=== PATIENT | female | born 1960 | race Caucasian/White ===

== ENCOUNTER → 2020-03-08 10:57 | Outpatient (CLI) | payer OTHER, SELFPAY ==
--- NOTE | ~2020-03-08 | DEXA_ITS ---
Bone Density Report Name: Suzanne New Age: 59 Sex: Female Ethnicity: White Date of : 1960 Indication: osteopenia; parental hip fracture; height loss; prior fracture; Referring Provider: ARMANDO BOLAND Study: Bone densitometry was performed. Exam Date: March 08, 2020 Accession number: [id number] Bone Density: Region BMD T-score Z-score Classification AP Spine (L1-L4) 0.829 -2.0 -0.5 Osteopenia Femoral Neck (Left) 0.641 -1.9 -0.6 Osteopenia Total Hip (Left) 0.819 -1.0 0.0 Normal Femoral Neck (Right) 0.668 -1.6 -0.3 Osteopenia Total Hip (Right) 0.756 -1.5 -0.5 Osteopenia Total Hip Mean 0.788 -1.3 -0.3 Osteopenia World Health Organization criteria for BMD impression classify patients as: Normal (T-score at or above -1.0), Osteopenia (T-score between -1.0 and -2.5), or Osteoporosis (T-score at or below -2.5). 10-year Fracture Risk: FRAX not reported because: Prior hip or vertebral fracture Previous Exams: Region Exam Age BMD T-score BMD Change BMD Change Date g/cm2 vs Baseline vs Previous AP Spine(L1-L4) 03/08/2020 59 0.829 -2.0 -0.012 -0.012 03/22/2011 50 0.842 -1.9 Total Hip(Left) 03/08/2020 59 0.819 -1.0 0.005 0.005 03/22/2011 50 0.814 -1.1 Total Hip(Right) 03/08/2020 59 0.756 -1.5 -0.028* -0.028* 03/22/2011 50 0.784 -1.3 *Denotes significance at 95% confidence level, LSC for AP Spine = 0.022 g/cm2, LSC for Total Hip = 0.027 g/cm2 Clinical Information Provided by Patient: Have had a previous hip or vertebral fracture Has had a low trauma fracture Parent has had a hip fracture Patient maximum height was 65.0 Menopause Age: 46 No regular weight bearing exercise Does not regularly consume dairy products Drinks caffeinated beverages Onset of menses at age 12 Number of children 2 Impression: The patient has low bone mass, based on the Total Spine T-score. The patient has risk factors, including: parental hip fracture, previous fracture. The BMD for the Total Hip(Right) decreased, changing by -0.028 since the last DXA exam. Discussion: INCREASED RISK OF FRACTURE DUE TO HISTORY OF FRACTURE. The patient's previous fracture puts the patient at high risk of a future fracture. In untreated patients, the risk of osteoporotic fracture increases approximately two-fold for each 1.0 SD decrease in T-score. Low bone density is not the only risk factor for fractur
--- NOTE | ~2020-03-08 | MM_ITS ---
EXAMINATION: MM screening [facility] BI w carrie HISTORY: Screening TECHNIQUE: Craniocaudal and mediolateral oblique 3-D tomosynthesis images were obtained and synthetic 2-D images were generated. CAD analysis was submitted and interpreted. COMPARISON: Comparison to multiple prior studies sequentially, with oldest reviewed study dated 02/04. BREAST PARENCHYMAL COMPOSITION: There are scattered areas of fibroglandular density. FINDINGS: There are benign bilateral breast calcifications which are not significantly changed. There is no evidence of suspicious mass, calcification, or architectural distortion to suggest malignancy in either breast. There has been no suspicious interval change. IMPRESSION: 1. No mammographic evidence of malignancy. 2. Recommend routine screening mammography in one year. BI-RADS Category 2: Benign finding(s). Reviewed, dictated and finalized at location A. ETCHER
== END ==
PROVIDERS: PCP Family Medicine Adolescent Medicine; Visit Provider Family Medicine Adolescent Medicine
DX: Z12.31 Encounter for screening mammogram for malignant neoplasm of breast (principal); Z78.0 Asymptomatic menopausal state; M85.88 Other specified disorders of bone density and structure, other site; M85.852 Other specified disorders of bone density and structure, left thigh; M85.851 Other specified disorders of bone density and structure, right thigh
CPT/HCPCS: 77063; 77067; 77080

== ENCOUNTER 2021-06-26 10:32 | Outpatient (CLI) | payer OTHER, SELFPAY ==
[2021-06-26 11:10] LABS: Hematocrit 42.2 % (37.0-47.0); Hemoglobin 13.6 g/dL (12.0-15.0)
== END 2021-06-26 10:33 | disposition home or self-care (01) ==
LOC: ANHSURGERY 10:36
PROVIDERS: PCP Family Medicine Adolescent Medicine; Visit Provider Obstetrics & Gynecology
DX: N95.0 Postmenopausal bleeding (principal); Z01.818 Encounter for other preprocedural examination
CPT/HCPCS: 36415; 85014; 85018

== ENCOUNTER 2021-06-30 02:07 | Day surgery (SDC) | payer OTHER, SELFPAY ==
[2021-06-22 11:41] VITALS: BMI 35.4
--- NOTE | 2021-06-22 11:52 | PC.NURSE ---
Report to the Outpatient Waiting Room, entrance under the green pavilion located off [facility], at time 10:45 on date 06/30/21. OR Time: 12:45. - You and your visitor will be asked a series of questions to screen for COVID 19 for your protection. - A mask is required within the hospital. One visitor will be allowed to accompany the patient into the hospital. Patients visitor will be instructed to remain with patient at all times or leave the building. We will allow the visitor to come back to the postoperative area when patient is ready. Preoperative COVID Testing Requirements: No COVID Test needed if: (proof is required; if not received patient will have Rapid Test prior to entry) - Patient has received COVID Vaccine at least 14 days prior to procedure date or - Patient has positive COVID test result within last 90 days of surgery date. COVID Test needed if above criteria is not met Patients may have clear liquids (water, carbonated beverages, clear teas, apple juice) until 3 hours prior to surgery (9:45) with a maximum of 20 ounces. - No food from midnight until time of surgery Take the following medications with a SIP of water the morning of surgery: NONE Medications to discontinue per physician: N/A Date to take last dose: N/A Please no make-up, nail zambian, hairspray, perfume, deodorant, or body powder the day of surgery. No jewelry (including any body piercings) or valuables the day of surgery, leave them at home. Please take a shower or bath the night before, or the morning of, surgery with an antibacterial soap. Wear comfortable, loose fitting clothing. - Jewelry must be removed prior to entering the operating room. Rings and piercings that are not removed may be cut off. - The hospital will not accept responsibility for valuables. - Please leave all valuables, including medications, at home the day of surgery. If you are going home after surgery, a licensed truck driver flatbed must drive you home. - NO public transportation without another adult. - We recommend that an adult stay with you for 24 hours following discharge. - We also recommend that you do not drive, make important decision, drink alcoholic beverages, or take any drugs that were not prescribed by your health care provider for at least 24 hours after your discharge time. Follow any additional instructions given to you from your surgeon. Telephone instructions given to ZHENG ARGUELLO and asked if any additional questions and then verbalized understanding. Patient advised to call surgeon office or pre surgery nurse liaison [phone] if any additional questions.
--- NOTE | 2021-06-28 07:49 | P.HP_ITS ---
H&P: HPI History of Present Illness Date/Time: 06/28/21 07:49 61-year-old 2 para 2 admitted for hysteroscopy and dilatation curettage secondary to postmenopausal bleeding. Patient sees Dr. Gamez she had a period since she was age 46 she took no hormones and has never taken. She is not on blood thinners or other new medications. She has noticed postmenopausal bleeding. She will undergo diagnostic treatment with hysteroscopy dilatation and curettage. Risks and benefits reviewed Chief Complaint: Postmenopausal bleeding Review of Systems Review of Systems: All systems reviewed & are unremarkable except as noted in HPI and below [facility] Social History Social History Smoking status: Never smoker Alcohol intake: current Alcohol use details: RARE Substance use: never Substance use type: does not use Spiritual care concerns: No Meds Home Medications and Allergies Home Medications Medication Instructions Recorded Confirmed Type No Home Medications 06/22/21 06/22/21 History Allergies Allergy/AdvReac Type Severity Reaction Status Date / Time No Known Allergies Allergy Unverified 06/22/21 11:40 Exam Const: General: no acute distress Eyes: General: appearance normal, both eyes and all related structures Neck: Neck: supple and no JVD Thyroid: thyroid normal Resp: Effort & Inspection: normal respiratory effort Auscultation: clear to auscultation bilaterally Cardio: Rate: regular rate Rhythm: regular rhythm GI: Inspection: non-distended GI Palp: Yes Soft to palpation, No Tenderness to palpation present (GI) and No Guarding due to palpation present (GI) Auscultation: normal bowel sounds : External Female Exam: normal external appearance Speculum Exam - Vagina: normal appearance of the vagina and vaginal bleeding Speculum Exam - Cervix: Cervical os closed Bimanual exam- vagina & uterus: enlarged Bimanual Exam- Adnexa, other: no masses Skin: General skin exam: no rashes or lesions noted Extrem: General: normal to inspection and no edema Psych: Mental Status: mental status grossly normal Affect: normal affect Assessment and Plan Additional Plan Impression postmenopausal bleeding Plan: Hysteroscopy/dilatation and curettage
--- NOTE | 2021-06-30 06:44 | WPDHPUPDATE1 ---
History and Physical Update Update Date/Time: 06/30/21 06:44 History and Physical has been reviewed, including an updated exam of the patient. There are NO changes in the patient's condition. Risks, benefits, and alternatives have been discussed and questions answered. Patient agrees to proceed with procedure.
[2021-06-30] MEDS: ACETAMINOPHEN 500 MG TABLET 1000 MG PO (10:55)
[2021-06-30 11:20] VITALS: BP 130/72; PULSE 70; RESP 16; TEMP 37.1; O2SAT 97
--- NOTE | 2021-06-30 11:31 | WPDANESEPPF ---
Anes - Initial Pre Proc Eval Procedure: Operation Date: 06/30/21 12:45 Proposed Procedures p Hysteroscopy Dilation and Curettage - Moises Haines MD Date/Time: 06/30/21 11:31 Surgeon: Moises Haines MD Pre Op Diagnosis: post menopausal bleeding Patient Data Age: 61 Gender: F Height: 1.6 m Weight: 89.4 kg Last Vital Signs Temp 37.1 C 06/30/21 11:20 Pulse 70 06/30/21 11:20 Resp 16 06/30/21 11:20 BP 130/72 06/30/21 11:20 Pulse Ox 97 06/30/21 11:20 Allergies Allergy/AdvReac Type Severity Reaction Status Date / Time No Known Allergies Allergy Verified 06/30/21 10:45 Home Medications Medication Instructions Recorded Confirmed Type hydrocodone-acetaminophen 1 tablet PO Q4H PRN #20 tablet 06/30/21 Rx Patient hx anesthesia problems: none Family hx anesthesia problems: none Results Review: All pre-operative results and documents have been reviewed as part of the pre-operative evaluation. [facility] Past Medical History Medical History Obesity Post-menopause bleeding Surgical History Surgical History (Updated 06/30/21 @ 11:34 by Moises Cassidy MD) History of section Social History Social History Smoking status: Never smoker Alcohol intake: current Alcohol use details: RARE Substance use: never Substance use type: does not use Living arrangements: with family Spiritual care concerns: No Anes - Eval Final PreProcedure Day of Procedure 06/30/21 11:31 Patient weight: obese Heart: regular rate and rhythm Lungs: clear to auscultation Airway: Mallampati scale class II Neurological: alert and oriented Last oral intake: >/= 8 hours ASA classification: II Emergent: no Anesthetic plan: proceed Anesthesia type and monitoring: general GIVS and standard monitoring Results Review: All pre-operative results and documents have been reviewed as part of the pre-operative evaluation. Informed Consent: The patient's anesthetic plan and its attendant risks and benefits were discussed with the patient/family/POA. Questions were solicited and answers provided to the satisfaction of the patient/family/POA.
[2021-06-30] MEDS: LACTATED RINGERS 1,000 ML 30 ML IV CONT (11:37)
[2021-06-30] MEDS: KETOROLAC 30 MG/ML VIAL (*BKC) IV PUSH (12:31)
--- NOTE | 2021-06-30 12:43 | W.PM.PROC2 ---
Procedure Note - Detailed Date of Procedure 06/30/21 Pre-op Diagnosis post menopausal bleeding Post-op Diagnosis other (Uterine polyp) Procedure Performed Hysteroscopy/dilatation curettage/polypectomy Surgeon Moises Haines MD Anesthesia MAC and local Indications 61-year-old female with postmenopausal bleeding and thickened endometrium on ultrasound Findings Uterus that sounded to7.5cm. Small uterine polyp that looked very benign in nature was present. Description of Procedure The patient was prepped draped in the normal sterile fashion placed in the dorsal lithotomy position. Under excellent IV sedation weighted speculum placed posterior fornix vagina. Anterior lip of cervix grasped with single-tooth tenaculum. 2.5cc of 1% xylocaine anesthesia placed at 2, 4, 8, 10:00 a.m. of the cervix. Uterus sounded to7.5cm. Serial dilatation with fragmented dilators performed followed by passage of the 5mm visualizing hysteroscope using normal saline as visualizing medium. The uterine polyp was seen posteriorly and this was grasped with a polyp forceps and removed piecemeal. The uterus was scraped over the entire 360? and over the tissue removed. All instruments removed she tolerated the procedure well all sponge, needle, instrument counts were correct. There were no immediate complications Estimated Blood Loss 5 Drains No Packing No Pathology yes Complications No immediate complications Condition stable Disposition PACU
[2021-06-30 12:50] VITALS: BP 109/55; PULSE 87; RESP 16; O2SAT 98
[2021-06-30 13:20] VITALS: BP 132/73; PULSE 62; RESP 16
[2021-06-30 13:35] VITALS: BP 138/77; PULSE 57; RESP 16
== END 2021-06-30 13:50 | disposition home or self-care (01) ==
PROVIDERS: PCP Family Medicine Adolescent Medicine; Visit Provider Obstetrics & Gynecology
PROC: 0U5B8ZZ Destruction of Endometrium, Via Natural or Artificial Opening Endoscopic (ICD-10-PCS; CPT 58563; principal; 2021-06-30 12:45)
DX: N95.0 Postmenopausal bleeding (principal); N84.0 Polyp of corpus uteri; E66.9 Obesity, unspecified; Z68.34 Body mass index [BMI] 34.0-34.9, adult
CPT/HCPCS: 58558; 36415; 85014; 85018; 88305; A9270; J1885; J2250; J2270; J2405; J2704; J7120

== ENCOUNTER → 2021-09-20 15:03 | Outpatient (CLI) | payer OTHER, SELFPAY ==
--- NOTE | ~2021-09-20 | MM_ITS ---
EXAMINATION: MM screening [facility] BI w carrie HISTORY: Screening mammogram, family history of breast cancer in her sister. TECHNIQUE: Craniocaudal and mediolateral oblique 3-D tomosynthesis images were obtained and synthetic 2-D images were generated. CAD analysis was submitted and interpreted. COMPARISON: 03/08/2020, 09/22/2018, 09/02/2017 BREAST PARENCHYMAL COMPOSITION: There are scattered areas of fibroglandular density. FINDINGS: There is no suspicious mass, calcification, or architectural distortion to suggest malignan cy in either breast. There has been no suspicious interval change. IMPRESSION: 1. No mammographic evidence of malignancy. 2. Recommend routine screening mammography in one year. BI-RADS Category 1: Negative Reviewed, dictated and finalized at location A.
== END ==
PROVIDERS: PCP Family Medicine Adolescent Medicine; Visit Provider Physician Assistant
DX: Z12.31 Encounter for screening mammogram for malignant neoplasm of breast (principal)
CPT/HCPCS: 77063; 77067

== ENCOUNTER 2022-01-01 14:55 | Outpatient (CLI) | payer OTHER, SELFPAY ==
--- NOTE | 2022-01-01 15:06 | ECG_ITS ---
Measurements Intervals [place] Rate: 79 P: 8 LA: 159 QRS: -8 QRSD: 82 T: 24 QT: 367 QTc: 422 Interpretive Statements SINUS RHYTHM WITHIN NORMAL LIMITS NO PREVIOUS ECG AVAILABLE FOR COMPARISON Electronically Signed On 01-01-2022 17:14:08 CDT by Tanner Fernandez M.D.
[2022-01-01 15:28] LABS: Basophils Percent Auto 0.4 % (0.2-1.2); Eosinophils Absolute Auto 0.1 K/mm3 (0-0.3); Eosinophils Percent Auto 1.5 % (0-4.4); Hematocrit 42.9 % (37.0-47.0); Immature Granulocyte Absolute 0.01 K/mm3 (0.00-0.031); Immature Granulocyte Percent A 0.1 % (0-0.5); Lymphocytes Absolute Auto 2.33 K/mm3 (0.9-3.2); Lymphocytes Percent Auto 32.8 % (18.3-44.2); Mean Corpuscular HGB Conc 32.6 g/dl (32-36); Mean Corpuscular Hemoglobin 27.5 pg (26-34); Mean Corpuscular Volume 84.3 fl (80-100); Mean Platelet Volume 10.4 fl (7.4-10.4); Monocytes Absolute Auto 0.7 K/mm3 (0.1-0.6); Monocytes Percent Auto 9.8 % (2.6-8.5); Neutrophils Absolute Auto 3.9 K/mm3 (1.3-6.7); Neutrophils Percent Auto 55.4 % (45.5-73.1); Platelet Count Result 288 k/mm3 (150-375); Red Blood Count 5.09 M/mm3 (4.2-5.4); White Blood Count 7.1 K/mm3 (4.5-10.0)
== END 2022-01-01 14:56 | disposition home or self-care (01) ==
LOC: ANHSURGERY 15:00
PROVIDERS: PCP Family Medicine Adolescent Medicine; Visit Provider Obstetrics & Gynecology
DX: N95.0 Postmenopausal bleeding (principal); E78.5 Hyperlipidemia, unspecified; Z01.818 Encounter for other preprocedural examination
CPT/HCPCS: 36415; 85025; 86850; 86900; 86901; 93005

== ENCOUNTER 2022-01-05 01:07 | Day surgery (SDC) | payer OTHER, SELFPAY ==
--- NOTE | 2021-12-26 14:46 | PC.NURSE ---
Report to the Outpatient Waiting Room, entrance under the green pavilion located off [facility], at time _0730 on date _01/05/22__. OR Time: _929__. - You and your visitor will be asked to self-screen and do not enter if you have any COVID symptoms. - Only one visitor and NO children visitors are allowed at this time. - The patient visitor is requested to leave or wait in car when not with patient due to restrictions. - A mask is required within the hospital. Patients may have clear liquids (water, carbonated beverages, clear teas, apple juice) until 3 hours prior to surgery with a maximum of 20 ounces. - No food from midnight until time of surgery BEFORE 0630AM - Infants may have breast milk until 4 hours before surgery, infant formula 6 hours prior to surgery. - Children will be allowed to drink immediately following surgery. If applicable, please bring a bottle or sippy cup to assist with drinking. Juice, water, soda, and popsicles are readily available. For infants on formula, please bring formula the day of surgery. Pacifiers are allowed. Take the following medications with a SIP of water the morning of surgery: _N/A Medications to discontinue per physician Date to take last dose Please no make-up, nail syriac, hairspray, perfume, deodorant, or body powder the day of surgery. No jewelry (including any body piercings) or valuables the day of surgery, leave them at home. Please take a shower or bath the night before, or the morning of, surgery with an antibacterial soap. Wear comfortable, loose fitting clothing. Children are encouraged to wear pajamas. - Jewelry must be removed prior to entering the operating room. Rings and piercings that are not removed may be cut off. - The hospital will not accept responsibility for valuables. - Please leave all valuables, including medications, at home the day of surgery. If you are going home after surgery, a licensed recycle driver must drive you home. - NO public transportation without another adult. - We recommend that an adult stay with you for 24 hours following discharge. - We also recommend that you do not drive, make important decision, drink alcoholic beverages, or take any drugs that were not prescribed by your health care provider for at least 24 hours after your discharge time. For Pediatric surgeries, we recommend two adults accompany the child home (only one inside the building at this time). Follow any additional instructions given to you from your surgeon. If you or anyone in your household have experienced Covid symptoms in the past week, please notify your surgeon or the nurse liaison at the phone number below for possible testing. Telephone instructions given to ___PATIENT and asked if any additional questions and then verbalized understanding. Patient advised to call surgeon office or pre surgery nurse liaison [phone] if any additional questions.
[2021-12-27 15:58] VITALS: BMI 35.4
--- NOTE | 2022-01-03 07:42 | PM.IMHP ---
H&P: HPI History of Present Illness Date/Time: 01/03/22 07:42 Chief Complaint: Postmenopausal bleeding with benign findings Narrative: This is a 71-year-old female who underwent hysteroscopy polypectomy with benign findings who is admitted for hysterectomy bilateral salpingo-oophorectomy secondary to this post menopausal bleeding. Risks and benefits reviewed in full COUNTS INCLUDE 234 BEDS AT THE [facility] Past Medical History Medical History Obesity Post-menopause bleeding Surgical History Surgical History History of section X2 Family History Family History Father Acute myocardial infarction Asthma Carcinoma of colon Cerebrovascular accident Colon polyp Diabetes mellitus Heart disease Hypertension Malignant neoplasm of prostate Grandparent Breast cancer Cancer of spinal cord Grandparent Breast cancer Diabetes mellitus Sibling Breast cancer Colon polyp Sibling Colon polyp Mother Depression Hypertension Social History Social History Smoking status: Never smoker Second hand tobacco smoke exposure: No Alcohol intake: current Alcohol use details: RARE Substance use: never Substance use type: does not use Gender identity (if verbalized by the patient): Female Sexual Orientation (if Verbalized by the Patient): Straight or Heterosexual Spiritual care concerns: No Agree to blood products: Yes Meds Home Medications and Allergies Home Medications Medication Instructions Recorded Confirmed Type atorvastatin 10 mg tablet 10 mg PO HS 12/26/21 12/26/21 History Allergies Allergy/AdvReac Type Severity Reaction Status Date / Time No Known Allergies Allergy Verified 07/25/21 15:16 Exam Const: General: cooperative, healthy appearing and comfortable Nutritional Appearance: average body habitus Orientation/consciousness: oriented to person, oriented to place and oriented to time Chest: Chest palpation & inspection: normal inspection of the chest Resp: Effort & Inspection: normal respiratory effort Cardio: Rate: regular rate Rhythm: regular rhythm Heart sounds: S1 normal heart sound present and S2 normal heart sound present GI: Inspection: normal to inspection : External Female Exam: normal external appearance Speculum Exam - Vagina: normal appearance of the vagina Speculum Exam - Cervix: normal appearance of the cervix and Cervical os closed Bimanual exam- vagina & uterus: enlarged Bimanual Exam- Adnexa, other: normal adnexae Assessment and Plan Assessment and plan (1) Postmenopausal bleeding: Code(s): N95.0 - Postmenopausal bleeding Status: Acute (2) Uterine prolapse: Code(s): N81.4 - Uterovaginal prolapse, unspecified Status: Acute (3) Pelvic pain: Code(s): R10.2 - Pelvic and perineal pain Status: Acute Plan Robotic total vaginal hysterectomy and bilateral salpingo-oophorectomy
[2022-01-05] VITALS (8 sets, daily range): BP systolic 110–162; BP diastolic 63–82; PULSE 53–76; RESP 16–24; TEMP 35.6–36.9; O2SAT 96–100
--- NOTE | 2022-01-05 06:30 | WPDHPUPDATE1 ---
History and Physical Update Update Date/Time: 01/05/22 06:30 History and Physical has been reviewed, including an updated exam of the patient. There are NO changes in the patient's condition. Risks, benefits, and alternatives have been discussed and questions answered. Patient agrees to proceed with procedure.
[2022-01-05] MEDS: ACETAMINOPHEN 500 MG TABLET 1000 MG PO (08:10)
--- NOTE | 2022-01-05 08:15 | WPDANESEPP ---
Anes - Eval Pre Procedure Procedure: Operation Date: 01/05/22 09:30 Proposed Procedures p Robotic Assisted Total Vaginal Hysterectomy wth Bilateral Salpingo-Oophorectomy - Moises Webster MD Date/Time: 01/05/22 08:15 Surgeon: Dewey Webster Preop Diagnosis: Pelvic Pain, Uterine Prolapse Pre Op Diagnosis: Post Menopausal Bleeding Patient Data Age: 61 Gender: F Height: 1.6 m Weight: 88.62 kg Last Vital Signs Temp 98.3 F 01/05/22 07:55 Pulse 73 01/05/22 07:55 Resp 16 01/05/22 07:55 BP 148/66 H 01/05/22 07:55 Pulse Ox 100 01/05/22 07:55 O2 Del Method Room Air 01/05/22 07:55 Allergies Allergy/AdvReac Type Severity Reaction Status Date / Time No Known Allergies Allergy Verified 01/05/22 08:08 Home Medications Medication Instructions Recorded Confirmed Type atorvastatin 10 mg tablet 10 mg PO HS 12/26/21 01/05/22 History hydrocodone 5 mg-acetaminophen 325 1 tablet PO Q4H PRN pain #30 tabs 01/05/22 Rx mg tablet ECG: SINUS RHYTHM WITHIN NORMAL LIMITS NO PREVIOUS ECG AVAILABLE FOR COMPARISON Electronically Signed On 01-01-2022 17:14:08 CDT by Tanner Fernandez M.D. : patient denies Patient hx anesthesia problems: none Family hx anesthesia problems: none Prior surgeries: CS X 2 Results Review: All pre-operative results and documents have been reviewed as part of the pre-operative evaluation. [facility] Past Medical History Medical History Obesity Post-menopause bleeding Surgical History Surgical History History of section X2 Family History Family History Father Acute myocardial infarction Asthma Carcinoma of colon Cerebrovascular accident Colon polyp Diabetes mellitus Heart disease Hypertension Malignant neoplasm of prostate Grandparent Breast cancer Cancer of spinal cord Grandparent Breast cancer Diabetes mellitus Sibling Breast cancer Colon polyp Sibling Colon polyp Mother Depression Hypertension Social History Social History Smoking status: Never smoker Second hand tobacco smoke exposure: No Alcohol intake: current Alcohol use details: RARE Substance use: never Substance use type: does not use Living arrangements: with family Gender identity (if verbalized by the patient): Female Sexual Orientation (if Verbalized by the Patient): Straight or Heterosexual Spiritual care concerns: No Agree to blood products: Yes Exam Day of Procedure 01/05/22 08:15 Patient weight: obese
[2022-01-05] MEDS: KETOROLAC 15 MG/ML VIAL (*BKC) IV PUSH (08:18)
[2022-01-05] MEDS: LACTATED RINGERS 1,000 ML 30 ML IV CONT (08:18)
--- NOTE | 2022-01-05 08:41 | P.PNAN_ITS ---
Anes - Initial Pre Proc Eval Procedure: Operation Date: 01/05/22 09:30 Proposed Procedures p Robotic Assisted Total Vaginal Hysterectomy wth Bilateral Salpingo- Oophorectomy - Moises Webster MD Date/Time: 01/05/22 08:41 Surgeon: Moises Webster MD Pre Op Diagnosis: Post Menopausal Bleeding Patient Data Age: 61 Gender: F Height: 1.6 m Weight: 88.62 kg Last Vital Signs Temp 36.8 C 01/05/22 07:55 Pulse 73 01/05/22 07:55 Resp 16 01/05/22 07:55 BP 148/66 H 01/05/22 07:55 Pulse Ox 100 01/05/22 07:55 O2 Del Method Room Air 01/05/22 07:55 Allergies Allergy/AdvReac Type Severity Reaction Status Date / Time No Known Allergies Allergy Verified 01/05/22 08:08 Home Medications Medication Instructions Recorded Confirmed Type atorvastatin 10 mg tablet 10 mg PO HS 12/26/21 01/05/22 History hydrocodone 5 mg-acetaminophen 325 1 tablet PO Q4H PRN pain #30 tabs 01/05/22 Rx mg tablet : patient denies Patient hx anesthesia problems: none Family hx anesthesia problems: none Results Review: All pre-operative results and documents have been reviewed as part of the pre- operative evaluation. [facility] Past Medical History Medical History Hypercholesteremia Obesity Post-menopause bleeding Surgical History Surgical History History of section X2 Family History Family History Father Acute myocardial infarction Asthma Carcinoma of colon Cerebrovascular accident Colon polyp Diabetes mellitus Heart disease Hypertension Malignant neoplasm of prostate Grandparent Breast cancer Cancer of spinal cord Grandparent Breast cancer Diabetes mellitus Sibling Breast cancer Colon polyp Sibling Colon polyp Mother Depression Hypertension Social History Social History Smoking status: Never smoker Second hand tobacco smoke exposure: No Alcohol intake: current Alcohol use details: RARE Substance use: never Substance use type: does not use Living arrangements: with family Gender identity (if verbalized by the patient): Female Sexual Orientation (if Verbalized by the Patient): Straight or Heterosexual Spiritual care concerns: No Agree to blood products: Yes Anes - Eval Final PreProcedure Day of Procedure 01/05/22 08:41 Patient weight: obese Heart: regular rate and rhythm Lungs: clear to auscultation Airway: Mallampati scale class II Neurological: alert and oriented Last oral intake: >/= 8 hours ASA classification: II Emergent: no Anesthetic plan: proceed Anesthesia type and monitoring: general ETT and standard monitoring Results Review: All pre-operative results and documents have been reviewed as part of the pre- operative evaluation. Informed Consent: The patient's anesthetic plan and its attendant risks and benefits were discussed with the patient/family/POA. Questions were solicited and answers provided to the satisfaction of the patient/family/POA.
[2022-01-05] MEDS: SCOPOLAMINE 1.5 MG PATCH TRANSDERM (08:45)
[2022-01-05] MEDS: ceFAZolin 2 GM/D5W 50 ML 2 GM/50 ML BAG IVPB (09:08)
--- NOTE | 2022-01-05 10:24 | W.PM.PROC2 ---
Procedure Note - Detailed Date of Procedure 01/05/22 Pre-op Diagnosis Post Menopausal Bleeding Post-op Diagnosis Same Procedure Performed Robotic total vaginal hysterectomy bilateral salpingo-oophorectomy / extensive lysis of adhesions Surgeon oMises Webster MD Anesthesia General Indications this 61-year-old female with benign findings on hysteroscopy and a history of postmenopausal bleeding Findings mild prolapse. Fairly normal-sized uterus. Normal-appearing ovaries and tubes. Multiple adhesions were seen as well Description of Procedure the patient was prepped draped in the normal sterile fashion placed in the dorsal lithotomy position. Under excellent general trach anesthesia weighted speculum placed in posterior fornix vagina. Anterior lip of the cervix grasped with single-tooth tenaculum. The uterus sounded to 9cm. Serial dilatation with fragmented dilators performed followed by passage of the 8. MEET and the 3. Cold cup. Next the 16 Thai catheter was placed in bladder to drain clear urine. The weighted speculum and the single-tooth removed. The gloves were changed A supraumbilical incision made the Veress needle passed in the abdomen. Abdomen filled with CO2 gas was [id number]. The 8mm trocar advanced in the abdomen downside visualized. No injury seen. Patient placed in Trendelenburg and right left lateral quadrant incisions made. 8mm trocars advanced under direct visualization assuring no injury. Right upper quadrant incision made the 8mm trocar advanced under direct visualization assuring no injury. The robot was docked Multiple adhesions were seen anteriorly from the omentum to the anterior abdominal wall into the top of the uterus. Using sharp dissection with monopolar cautery occasional bipolar cautery these were brought down and relieved by the adhesions helping to facilitate visualization. Once visualization was considered adequate, the left round ligament was grasped, burned, cut. Anteriorly a bladder flap was formed by sharply dissecting the peritoneum and reflecting bladder caudally away from the cervix and uterus. This was brought across to the opposite round ligament which was clamped, burned, cut. Next the left infundibulopelvic structure was skeletonized. To remove the left ovary and tube this was clamped, burned, cut and brought to level of previously cut round ligament. In like fashion the the right infundibulopelvic structure was skeletonized to remove the right ovary and tube. This was clamped, burned, cut brought to level previously cut round ligament. Next the cardinal and broad ligaments on the left were serially skeletonized hugging the cervix uterus clamping burning cutting until the uterine vessels could be seen on the left. These were individually clamped, burned, cut. There were noted be large and tortuous. In like fashion the cardinal broad ligaments on the right were serially skeletonized clamping burning cutting and hugging the cervix uterus until the uterine vessels could be seen on the right. These were individually clamped, burned, cut. Blanching of the uterus was noted. A colpotomy incision was made cervix uterus ovaries and tubes removed through the vagina. The vagina then closed with continuous running 0V lock from lateral edge lateral edge back to the midline. Irrigation undertaken to clear after blood loss had been estimated to be 25cc. The raw surface area was sprinkled with [place] term. Hemostasis was assured in the robot was undocked. The gas removed from the abdomen. The incisions closed with 4 O Monocryl and glue after the trocars had been removed. Patient went to recovery in satisfactory condition. All sponge, needle, instrument counts were correct. There were no immediate complications Estimated Blood Loss 25 Drains No Packing No Pathology Yes Complications No immediate complications Condition Stable Disposition PACU
--- NOTE | 2022-01-05 10:29 | P.DS_ITS ---
DS: Admitting Diagnosis Discharge Date Admitting Diagnosis postmenopausal bleeding uterine prolapse DS: Discharge Diagnosis Discharge Diagnosis (1) Pelvic pain: Code(s): R10.2 - Pelvic and perineal pain Status: Acute (2) Uterine prolapse: Code(s): N81.4 - Uterovaginal prolapse, unspecified Status: Acute (3) Postmenopausal bleeding: Code(s): N95.0 - Postmenopausal bleeding Status: Acute DS: Summary Hospital Course Reason for hospitalization: patient was admitted for robotic total vaginectomy and bilateral salpingo- oophorectomy secondary to postmenopausal bleeding with previous benign findings on the sampling of the uterus Hospital Course: patient underwent an unremarkable robotic total vaginectomy and bilateral salpingo-oophorectomy. Hospital course unremarkable. She was up, voiding without difficulty, eating regular diet, ambulating, in general without complaints. Routine discharge instructions were given Time Spent with Patient Time attestation: Total time spent providing and/or coordinating discharge services: DS: Data Data Completed and Pending Pending studies at discharge: Pending at discharge 01/05/22 09:53 Surgical [PTH] Routine Discharge Plan Discharge Patient Disposition: Home, Self-Care Stand Alone Forms: General Discharge Instructions Follow-up/Referrals: Moises Morgan MD [Physician] - Discharge Medications: New hydrocodone-acetaminophen 5-325 mg tablet 1 tablet PO Q4H PRN (Reason: pain) Qty: 30 0RF No Action atorvastatin 10 mg tablet 10 mg PO HS
[2022-01-05] MEDS: fentaNYL CITRATE INJ (*CRX) 100 MCG/2 ML VIAL 25 MCG IV PUSH ×3 (10:58→11:04)
--- NOTE | 2022-01-05 11:43 | PC.NURSE ---
Patient transferred to post room # via ( 052 ). Support person present. Oriented to unit, room, information board, rooming in, admission packet and security measures. Patient verbalizes understanding.
[2022-01-05] MEDS: DEXTROSE 5%/LACTATED RINGERS 1,000 ML 125 ML IV CONT (11:56)
[2022-01-05] MEDS: ONDANSETRON INJ 4 MG/2 ML VIAL IV PUSH ×3 (12:07→20:36)
[2022-01-05] MEDS: KETOROLAC 30 MG/ML VIAL (*BKC) IV PUSH ×2 (13:37→19:44)
[2022-01-05] MEDS: MORPHINE SULFATE (*CRX) 2 MG/ML INJ IV PUSH (15:09)
[2022-01-05] MEDS: SIMETHICONE 80 MG TAB.CHEW PO ×2 (20:38→23:44)
[2022-01-05] MEDS: HYDROcodone/acetaminophen (*CRX) 10-325 MG TABLET 1 TAB PO (23:45)
[2022-01-06] VITALS: BP 157/89; PULSE 80; RESP 16; TEMP 36.7; O2SAT 97
[2022-01-06] MEDS: ONDANSETRON INJ 4 MG/2 ML VIAL IV PUSH ×3 (01:24→09:32)
[2022-01-06] MEDS: IBUPROFEN 600 MG TABLET PO ×2 (03:44→08:43)
[2022-01-06] MEDS: SIMETHICONE 80 MG TAB.CHEW PO ×2 (03:44→08:44)
[2022-01-06] MEDS: HYDROcodone/acetaminophen (*CRX) 10-325 MG TABLET 1 TAB PO (03:45)
[2022-01-06 04:15] VITALS: BP 136/66; PULSE 78; RESP 16; TEMP 36.4; O2SAT 97
--- NOTE | 2022-01-06 08:30 | PC.NURSE ---
PT introductions made and plan of care discussed per post op nurse obgyn surgery, pain management, daily care activities and pending discharge to home. PT sole recipient of such instructions and no barriers to learning identified at this time. PT received such instructions this shift per one to one discussion and demonstrations. PT verbalized understanding of such care.
[2022-01-06] MEDS: ENOXAPARIN 40 MG/0.4 ML SYRINGE SUB-Q (08:42)
[2022-01-06 08:43] VITALS: BP 127/74; PULSE 74; RESP 18; TEMP 37.3; O2SAT 95
[2022-01-06] MEDS: HYDROcodone/acetaminophen (*CRX) 5-325 MG TABLET 1 TAB PO (08:43)
[2022-01-06] MEDS: DOCUSATE SODIUM 100 MG CAPSULE PO (08:43)
--- NOTE | 2022-01-06 10:18 | WPDANESPN ---
Anes - Prog Note Post-Op Date/Time: 01/06/22 10:18 Vital Signs: Last Vital Signs Temp 37.3 C 01/06/22 08:43 Pulse 74 01/06/22 08:43 Resp 18 01/06/22 08:43 BP 127/74 01/06/22 08:43 Pulse Ox 95 01/06/22 08:43 O2 Del Method Room Air 01/05/22 16:29 O2 Flow Rate 6 01/05/22 10:35 Pain Score (VAS): 0 I/O: Intake & Output 01/05/22 01/06/22 01/06/22 23:59 07:59 15:59 Intake Total 1240 650 Output Total 1150 300 Balance 90 -300 650 Patient Feedback: Patient satisfied with anesthetic care.
--- NOTE | 2022-01-06 11:38 | PM.GYNPNOP ---
[employer] - A/P Assessment and plan (1) Status post robot-assisted surgical procedure: Code(s): Z98.890 - Other specified postprocedural states Status: Acute Assessment and Plan: A: POD#1, doing well. P: Home to f/u 2 weeks. Postoperative Procedures: Procedures Operation Date: 01/05/22 09:30 Actual Procedure Side Surgeon p Robotic Assisted Total Vaginal Hysterectomy wth Bilateral Salpingo-Oophorectomy, Lysis of Adhesions Bilateral Moises Webster MD Time Spent With Patient Time with patient: less than 15 minutes [employer]- PN:Subj Post-Op Subjective Date/time seen: 01/06/22 11:38 Interval history: Pain OK. Nausea last night, has improved this morning. Tolerating diet. Voiding. Would like to go home. Exam Narrative: AVSS I/O OK ABD soft, nontender. Incisions c/d/i. EXT nontender [employer] - PN: Obj Data Vital Signs Vital Signs: Vital Signs - 24 hr 01/05/22 11:45 01/05/22 12:23 01/05/22 16:29 Temperature 35.6 C L Pulse Rate 64 Respiratory Rate 18 Blood Pressure 148/72 H Pulse Oximetry 100 Oxygen Delivery Room Air Room Air 01/05/22 19:00 01/06/22 00:00 01/06/22 04:15 Temperature 36.9 C 36.7 C 36.4 C Pulse Rate 76 80 78 Respiratory Rate 18 16 16 Blood Pressure 162/82 H 157/89 H 136/66 Pulse Oximetry 97 97 97 Oxygen Delivery 01/06/22 08:43 Temperature 37.3 C Pulse Rate 74 Respiratory Rate 18 Blood Pressure 127/74 Pulse Oximetry 95 Oxygen Delivery Intake/Output Intake/Output: Intake & Output 01/03/22 01/04/22 01/05/22 01/06/22 23:59 23:59 23:59 23:59 Intake Total 1540 1130 Output Total 1180 3300 Balance 360 -2170 Meds/Results Medications: Active Medications Generic Name Dose Route Start Last Admin Trade Name Freq PRN Reason Stop Dose Admin Hydrocodone Bitart/Acetaminophen 1 tab 01/05/22 11:38 01/06/22 08:43 Hydrocodone/Acetaminophen (*Crx) 5-325 Mg Tablet PO 1 tab Q3H PRN Administration Pain Rated 5 or Less Hydrocodone Bitart/Acetaminophen 1 tab 01/05/22 11:38 01/06/22 03:45 Hydrocodone/Acetaminophen (*Crx) 10-325 Mg Tablet PO 1 tab Q3H PRN Administration Pain Rated 6 or Greater Docusate Sodium 100 mg 01/05/22 17:00 01/06/22 08:43 Docusate Sodium 100 Mg Capsule PO 100 mg BID MANFRED Administration Enoxaparin Sodium 40 mg 01/06/22 09:00 01/06/22 08:42 Enoxaparin 40 Mg/0.4 Ml Syringe SUB-Q 40 mg DAILY MANFRED Administration Ibuprofen 600 mg 01/05/22 11:38 01/06/22 08:43 Ibuprofen 600 Mg Tablet PO 600 mg Q6H PRN Administration Cramping Ketorolac Tromethamine 30 mg 01/05/22 11:38 01/05/22 19:44 Ketorolac 30 Mg/Ml Vial (*Bkc) IV PUSH 01/10/22 11:37 30 mg Q6H PRN Administration Pain Rated 4-6 Naloxone HCl 0.1 mg 01/05/22 11:38 Naloxone Hcl 0.4 Mg/Ml Vial IV PUSH Q2M PRN Respiratory rate less than 10 Ondansetron HCl 4 mg 01/05/22 16:41 01/06/22 09:32 Ondansetron Inj 4 Mg/2 Ml Vial IV PUSH 4 mg Q4H PRN Administration Nausea And Vomiting Simethicone 80 mg 01/05/22 11:38 01/06/22 08:44 Simethicone 80 Mg Tab.Chew PO 80 mg Q2H PRN Administration Gas
--- NOTE | 2022-01-06 13:45 | PC.NURSE ---
PT was given [place] 5 and motrin 600mg prior to discharge but was unable to scan and administer via computer since pt had been discharged. Pain level was a 2 and it was for generalized soreness. PT wearing abdominal binder and has an ice pack to abdomen. PT discharged to home via wheelchair.
--- NOTE | 2022-01-06 14:00 | PC.NURSE ---
PT received discharge instructions per protocol and verbalized understanding of such care.
--- NOTE | 2022-01-06 14:18 | PC.NURSE ---
PT discharged to home via wheelchair accompanied by spouse and taken to waiting car. Follow up appts confirmed
== END 2022-01-06 14:18 | disposition home or self-care (01) ==
LOC: ANHSURGERY 07:38 → ANHOB2 11:41
PROVIDERS: PCP Family Medicine Adolescent Medicine; Visit Provider Obstetrics & Gynecology
PROC: (CPT 58552; principal; 2022-01-05 09:30)
DX: N95.0 Postmenopausal bleeding (principal); N81.4 Uterovaginal prolapse, unspecified; E78.00 Pure hypercholesterolemia, unspecified; E66.9 Obesity, unspecified; Z68.34 Body mass index [BMI] 34.0-34.9, adult; R10.2 Pelvic and perineal pain
CPT/HCPCS: 58552; S2900; 36415; 85025; 86850; 86900; 86901; 88307; 93005; 99199; A9270; J0690; J1100; J1650; J1885; J2250; J2270; J2405; J2704; J3010; J7030; J7120; J7121

== ENCOUNTER → 2023-02-26 15:50 | Outpatient (CLI) | payer OTHER, SELFPAY ==
--- NOTE | ~2023-02-26 | MM_ITS ---
EXAMINATION: MM screening fuad BI w carrie HISTORY: Screening mammogram TECHNIQUE: Craniocaudal and mediolateral oblique 3-D tomosynthesis images were obtained and synthetic 2-D images were generated. CAD analysis was submitted and interpreted. COMPARISON: 09/20/2021, 03/08/2020, 09/22/2018 bilateral screening mammogram examinations BREAST PARENCHYMAL COMPOSITION: There are scattered areas of fibroglandular density. FINDINGS: Scattered small low-density circumscribed benign-appearing opacities. There is no evidence of suspicious mass, calcification, or architectural distortion to suggest malignancy in either breast . There has been no suspicious interval change. IMPRESSION: 1. No mammographic evidence of malignancy. 2. Recommend routine screening mammography in one year. BI-RADS Category 2: Benign finding(s). Reviewed, dictated and finalized at location A.
== END ==
PROVIDERS: PCP Family Medicine Adolescent Medicine; Visit Provider Family Medicine Adolescent Medicine
DX: Z12.31 Encounter for screening mammogram for malignant neoplasm of breast (principal)
CPT/HCPCS: 77063; 77067

== ENCOUNTER 2024-03-02 15:33 | Outpatient (CLI) | payer OTHER, SELFPAY ==
--- NOTE | ~2024-03-02 | MM_ITS ---
EXAMINATION: MM screening fuad BI w carrie HISTORY: Screening mammogram, family history of breast cancer in her sister. TECHNIQUE: Craniocaudal and mediolateral oblique 3-D tomosynthesis images were obtained and synthetic 2-D images were generated. CAD analysis was submitted and interpreted. COMPARISON: 02/26/2023, 09/20/2021, 03/08/2020 BREAST PARENCHYMAL COMPOSITION:Not Dense. There are scattered areas of fibroglandular density. FINDINGS: No suspicious mass, calcification, or architectural distortion are identified in either tori ast to suggest malignancy. There has been no suspicious interval change. IMPRESSION: No mammographic evidence of malignancy. Recommend routine screening mammography in one year. BI-RADS Category 1: Negative Reviewed, dictated and finalized at location .
== END 2024-03-02 15:34 | disposition home or self-care (01) ==
PROVIDERS: PCP Family Medicine Adolescent Medicine; Visit Provider Family Medicine Adolescent Medicine
DX: Z12.31 Encounter for screening mammogram for malignant neoplasm of breast (principal)
CPT/HCPCS: 77063; 77067

== ENCOUNTER 2024-11-05 01:48 | Day surgery (SDC) | payer OTHER, SELFPAY ==
[2024-10-16 09:46] VITALS: BMI 35.4
[2024-11-05 11:34] VITALS: BP 148/88; PULSE 79; RESP 19; TEMP 36.8; O2SAT 99
[2024-11-05] MEDS: LACTATED RINGERS 1,000 ML 150 ML IV CONT (11:47)
--- NOTE | 2024-11-05 12:29 | P.PNAN_ITS ---
Anes - Initial Pre Proc Eval Procedure: Operation Date: 11/05/24 12:30 Proposed Procedures p Colonoscopy - Jerry Persaud MD Date/Time: 11/05/24 12:29 Surgeon: Jerry Persaud MD Pre Op Diagnosis: Family history of malignant neoplasm of digestive Patient Data Age: 64 Gender: F Height: 1.6 m Weight: 91.9 kg Last Vital Signs Temp 36.8 C 11/05/24 11:34 Pulse 79 11/05/24 11:34 Resp 19 11/05/24 11:34 BP 148/88 H 11/05/24 11:34 Pulse Ox 99 11/05/24 11:34 O2 Del Method Room Air 11/05/24 11:34 Allergies Allergy/AdvReac Type Severity Reaction Status Date / Time No Known Allergies Allergy Verified 11/05/24 11:31 Home Medications ?Medication ?Instructions ?Recorded ?Confirmed ?Type alendronate 70 mg tablet See Rx Instructions .Route 07/15/24 10/16/24 Rx .COMPLEX #12 tabs atorvastatin 10 mg tablet See Rx Instructions .Route 07/27/24 11/05/24 Rx .COMPLEX #90 tabs cholecalciferol (vitamin D3) 1,250 1,250 mcg PO MONTHLY #3 caps 07/27/24 11/05/24 Rx mcg (50,000 unit) capsule triamcinolone acetonide 0.1 % 1 applic topical TID #80 grams 07/27/24 10/16/24 Rx topical cream topiramate 50 mg tablet 50 mg PO QHS #90 tabs 07/28/24 11/05/24 Rx Patient hx anesthesia problems: none Family hx anesthesia problems: none Results Review: All pre-operative results and documents have been reviewed as part of the pre- operative evaluation. [facility] Past Medical History Medical History Hypercholesteremia Uterine prolapse Post-menopause bleeding Obesity Surgical History Surgical History History of hysterectomy with bilateral oophorectomy (01/2022) History of section X2 Family History Family History Father Acute myocardial infarction Asthma Carcinoma of colon Cerebrovascular accident Colon polyp Diabetes mellitus Heart disease Hypertension Malignant neoplasm of prostate Grandparent Breast cancer Cancer of spinal cord Grandparent Breast cancer Diabetes mellitus Sibling Breast cancer Colon polyp Sibling Colon polyp Mother Depression Hypertension Social History Social History Smoking status: Never smoker Second hand tobacco smoke exposure: No Alcohol intake: current Alcohol use details: RARE Substance use: never Substance use type: does not use Do You Feel Safe in your Home?: Yes Lack of Transportation: No Lack of Food: Never True Current Housing: I Have Housing Concerned About Future Housing: No Difficulty Paying Gas/Electric Bills: No Difficulty Paying for Meds: No Currently Unemployed: No Education: High School Diploma/GED Difficulty w/ Childcare or Family Care: No Living arrangements: with family Occupation/Education: occupation Gender identity (if verbalized by the patient): Female Sexual Orientation (if Verbalized by the Patient): Straight or Heterosexual Spiritual care concerns: No Agree to blood products: Yes Anes - Eval Final PreProcedure Day of Procedure 11/05/24 12:29 Patient weight: obese Heart: regular rate and rhythm Lungs: normal air movement Airway: Mallampati scale class II Neurological: alert and oriented Last oral intake: >/= 8 hours ASA classification: II Emergent: no Anesthetic plan: proceed Anesthesia type and monitoring: general GIVS and standard monitoring Results Review: All pre-operative results and documents have been reviewed as part of the pre- operative evaluation. Informed Consent: The patient's anesthetic plan and its attendant risks and benefits were discussed with the patient/family/POA. Questions were solicited and answers provided to the satisfaction of the patient/family/POA.
--- NOTE | 2024-11-05 12:29 | P.HP_ITS ---
H&P: HPI History of Present Illness Date/Time: 11/05/24 12:29 Chief Complaint: family history of colorectal cancer Narrative: This is the patient's 2nd colonoscopy. There are no GI symptoms . Her father had colorectal cancer. Review of Systems Review of Systems: All systems reviewed & are unremarkable except as noted in HPI and below PMFSH Past Medical History Medical History Hypercholesteremia Uterine prolapse Post-menopause bleeding Obesity Surgical History Surgical History History of hysterectomy with bilateral oophorectomy (01/2022) History of section X2 Family History Family History Father Acute myocardial infarction Asthma Carcinoma of colon Cerebrovascular accident Colon polyp Diabetes mellitus Heart disease Hypertension Malignant neoplasm of prostate Grandparent Breast cancer Cancer of spinal cord Grandparent Breast cancer Diabetes mellitus Sibling Breast cancer Colon polyp Sibling Colon polyp Mother Depression Hypertension Social History Social History (Updated 07/27/24 @ 16:04 by Oralia Hollingsworth [facility]) Smoking status: Never smoker Second hand tobacco smoke exposure: No Alcohol intake: current Alcohol use details: RARE Substance use: never Substance use type: does not use Do You Feel Safe in your Home?: Yes Lack of Transportation: No Lack of Food: Never True Current Housing: I Have Housing Concerned About Future Housing: No Difficulty Paying Gas/Electric Bills: No Difficulty Paying for Meds: No Currently Unemployed: No Education: High School Diploma/GED Difficulty w/ Childcare or Family Care: No Living arrangements: with family Occupation/Education: occupation Gender identity (if verbalized by the patient): Female Sexual Orientation (if Verbalized by the Patient): Straight or Heterosexual Spiritual care concerns: No Agree to blood products: Yes Meds Home Medications and Allergies Home Medications ?Medication ?Instructions ?Recorded ?Confirmed ?Type alendronate 70 mg tablet See Rx Instructions .Route 07/15/24 10/16/24 Rx .COMPLEX #12 tabs atorvastatin 10 mg tablet See Rx Instructions .Route 07/27/24 11/05/24 Rx .COMPLEX #90 tabs cholecalciferol (vitamin D3) 1,250 1,250 mcg PO MONTHLY #3 caps 07/27/24 11/05/24 Rx mcg (50,000 unit) capsule triamcinolone acetonide 0.1 % 1 applic topical TID #80 grams 07/27/24 10/16/24 Rx topical cream topiramate 50 mg tablet 50 mg PO QHS #90 tabs 07/28/24 11/05/24 Rx Allergies Allergy/AdvReac Type Severity Reaction Status Date / Time No Known Allergies Allergy Verified 11/05/24 11:31 Vital Signs Vital Signs - 24 hr 11/05/24 11:34 Temperature 98.2 F Pulse Rate 79 Respiratory Rate 19 Blood Pressure 148/88 H Pulse Oximetry 99 Oxygen Delivery Room Air Exam Const: General: cooperative and healthy appearing Resp: Effort & Inspection: normal respiratory effort and able to speak in complete sentences Auscultation: clear to auscultation bilaterally Cardio: Rate: regular rate Rhythm: regular rhythm GI: Inspection: normal to inspection GI Palp: No No hepatosplenomegaly present Auscultation: normal bowel sounds Rectal Exam: deferred Skin: General skin exam: normal color Psych: Appearance: grossly normal Mental Status: mental status grossly normal Assessment and Plan Assessment and plan (1) Encounter for screening colonoscopy: Code(s): Z12.11 - Encounter for screening for malignant neoplasm of colon Status: Acute Assessment and Plan: The patient is deemed a good candidate for the procedure. Consent signed. Will proceed.
--- NOTE | 2024-11-05 12:53 | S_PTH ---
PATIENT: Suzanne New LOC: [facility] Smith#:[id number] AGE/SX: 64/F ROOM: RE11/05/[address]: Jerry Persaud MD : 1960 BED: DIS: 11/05/2024 SPEC #: [id number] RECD: 11/05/24 14:21 STATUS: MARCUS REQ #: [id number] SLIME: 11/05/24 12:[address]: Jerry Persaud DEPT: [facility] Surgical RECD BY: Carlotta Pate ENTERED: 11/05/24 14:21 SP TYPE: Surgical OTHR DR: Haja Tao MD Tissues: A - Colon Polypectomy B - Rectal Polyp Procedures: Hematoxylin and Eosin Stain Gross and Microscopic Level 4
[2024-11-05 12:55] VITALS: BP 137/72; PULSE 76; RESP 32; O2SAT 99
[2024-11-05 13:05] VITALS: BP 128/73; PULSE 69; RESP 23; O2SAT 96
[2024-11-05 13:15] VITALS: BP 152/73; PULSE 62; RESP 21; O2SAT 98
== END 2024-11-05 13:29 | disposition home or self-care (01) ==
PROVIDERS: PCP Family Medicine Adolescent Medicine; Referring Provider Nurse Practitioner Family; Visit Provider Internal Medicine Gastroenterology
PROC: 0DJD8ZZ Inspection of Lower Intestinal Tract, Via Natural or Artificial Opening Endoscopic (ICD-10-PCS; CPT 45378; principal; 2024-11-05 12:30)
DX: Z12.11 Encounter for screening for malignant neoplasm of colon (principal); D12.3 Benign neoplasm of transverse colon; D12.8 Benign neoplasm of rectum; K57.30 Diverticulosis of large intestine without perforation or abscess without bleeding; Z80.0 Family history of malignant neoplasm of digestive organs; E66.9 Obesity, unspecified; Z68.35 Body mass index [BMI] 35.0-35.9, adult
CPT/HCPCS: 45385; 88305; J2003; J2704; J7120

== ENCOUNTER 2024-11-13 18:06 | Emergency (ER) | payer OTHER, SELFPAY ==
--- NOTE | ~2024-11-13 | XR_ITS ---
XR wrist LT min 3V Ordering provider: SANF[place] History: . fell in shower. pain to distal radius . Comparison: None. FINDINGS: BONES: Small bony fragment near to the trapezium bone which may be old fracture. Otherwise, No acute fracture or dislocation. No definite scaphoid fracture. JOINT SPACES: Osteoarthritic changes of the 1st carpometacarpal joint. Osteoarthritic changes in the area of the joint between the radius and ulna. Narrowing of the proximal and distal interphalangeal j oints. SOFT TISSUES: Normal. IMPRESSION: No acute osseous abnormality left wrist. Small bony fragment near to the trapezium most likely old fr acture. Polyarticular osteoarthritic changes. Reviewed, dictated and finalized at location A. IMPRESSION: No acute osseous abnormality left wrist. Small bony fragment near to the trapez ium most likely old fracture. Polyarticular osteoarthritic changes.
[2024-11-13 18:15] VITALS: BP 153/93; PULSE 81; RESP 16; TEMP 37.1; O2SAT 96
--- NOTE | 2024-11-13 18:50 | ED.UPPEXIN ---
HPI - Extremity Injury (Upper) General Chief Complaint: Extremity Injury, Upper Stated Complaint: Wrist Pain Time Seen by Provider: 11/13/24 18:46 Source: patient and RN notes reviewed Mode of arrival: ambulatory Limitations: no limitations History of Present Illness HPI narrative: Patient presents today complaining of a left wrist injury. Approximately 2 hours prior to exam, patient fell in the shower sideways on to the ulnar aspect of her left wrist. Reports some mild tingling to the fingertips. She currently rates her pain 7/10 with no OTC treatment prior to arrival. Denies head injury. Related Data Allergies Allergy/AdvReac Type Severity Reaction Status Date / Time No Known Allergies Allergy Verified 11/13/24 18:15 PMFSH Past Medical History Medical History Hypercholesteremia Uterine prolapse Post-menopause bleeding Obesity Surgical History Surgical History History of hysterectomy with bilateral oophorectomy (01/2022) History of section X2 Family History Family History Father Acute myocardial infarction Asthma Carcinoma of colon Cerebrovascular accident Colon polyp Diabetes mellitus Heart disease Hypertension Malignant neoplasm of prostate Grandparent Breast cancer Cancer of spinal cord Grandparent Breast cancer Diabetes mellitus Sibling Breast cancer Colon polyp Sibling Colon polyp Mother Depression Hypertension Social History Social History Smoking status: Never smoker Second hand tobacco smoke exposure: No Alcohol intake: current Alcohol use details: RARE Substance use: never Substance use type: does not use Do You Feel Safe in your Home?: Yes Lack of Transportation: No Lack of Food: Never True Current Housing: I Have Housing Concerned About Future Housing: No Difficulty Paying Gas/Electric Bills: No Difficulty Paying for Meds: No Currently Unemployed: No Education: High School Diploma/GED Difficulty w/ Childcare or Family Care: No Living arrangements: with family Occupation/Education: occupation Gender identity (if verbalized by the patient): Female Sexual Orientation (if Verbalized by the Patient): Straight or Heterosexual Spiritual care concerns: No Agree to blood products: Yes Comments At time of signature, I have reviewed and agree with nursing past medical, surgical, social and family history unless otherwise noted. Please see nursing chart for further information. There is no relevant family history pertinent to the presenting complaint Exam Narrative: GENERAL: Well-appearing, well-nourished, and in no acute distress. HEAD: Normocephalic, atraumatic. EYES: EOMI. No redness or drainage. Conjunctivae normal. ENT: Mucous membranes pink and moist. NECK: Normal AROM. CHEST: No respiratory distress. EXTREMITIES: Left wrist: Mild tenderness generally about the wrist. No edema, ecchymosis, erythema, deformity noted. Discomfort with passive extension, but no pain with range of motion in any other direction. No snuffbox tenderness. Distal sensation intact in all 5 fingers. Capillary refill normal. Radial pulse normal. SKIN: Warm, dry, no rash. Capillary refill normal. Normal skin turgor. NEURO: No focal deficits. Alert and oriented x3. Gait steady. PSYCH: Normal affect. No signs of depression or anxiety. Course Course Level of Care: Express Care Visit Vital Signs Vital signs: Vital Signs Temperature 98.8 F 11/13/24 18:15 Pulse Rate 81 11/13/24 18:15 Respiratory Rate 16 11/13/24 18:15 Blood Pressure 153/93 H 11/13/24 18:15 Pulse Oximetry 96 11/13/24 18:15 Temperature 98.8 F 11/13/24 18:15 Pulse Rate 81 11/13/24 18:15 Respiratory Rate 16 11/13/24 18:15 Blood Pressure 153/93 H 11/13/24 18:15 Pulse Oximetry 96 11/13/24 18:15 Review MDM - Extremity Injury (Upper) MDM Narrative Medical decision making narrative: 64-year-old female patient presents after a a fall in her shower injured her left wrist approximately 2 hours ago. Tingling to the fingertips. X-rays negative for anything acute. Tee wrap applied. Vital signs stable. Anticipatory guidance given. Recommend conservative treatment with orthopedic follow-up if symptoms persist. Differential Diagnosis Differential diagnosis: Likely sprain and strain of wrist and fracture of wrist Imaging Data Radiologist's impression: ITS Impressions Wrist X-Ray 11/13/24 18:39 IMPRESSION: No acute osseous abnormality left wrist. Small bony fragment near to the trapezium most likely old fracture. Polyarticular osteoarthritic changes. Critical Care Time Critical Care Time Critical Care Time: No Discharge Plan Discharge Clinical Impression: Contusion of left wrist Qualifiers: Encounter type: initial encounter Qualified Code(s): S60.212A - Contusion of left wrist, initial encounter Patient Disposition: Home Condition: Stable Instructions: Contusion in Adults (ED) Additional Instructions: Your wrist x-ray is negative for fracture. Wear the Tee wrap for comfort and stability. Elevate and ice the wrist. Taking anti-inflammatories such as Aleve or ibuprofen to help with pain. Follow-up with your PCP or orthopedics in 7-10 days if symptoms are not improving. Your blood pressure was elevated above 120/80 today at Urgent Care. This puts you above the threshold for follow up. Please schedule a followup visit with your personal physician as soon as possible, for further evaluation and treatment. Even blood pressure exceeding 120/80 may indicate pre-hypertension. Patient Language: Hungarian Prescriptions: No Action atorvastatin 10 mg tablet See Rx Instructions .ROUTE .COMPLEX Qty: 90 2RF Dose Instruction: TAKE 1 TABLET BY MOUTH ONCE DAILY AT BEDTIME Rx Instructions: TAKE 1 TABLET BY MOUTH ONCE DAILY AT BEDTIME cholecalciferol (vitamin D3) 1,250 mcg (50,000 unit) capsule 1,250 mcg PO MONTHLY Qty: 3 3RF triamcinolone acetonide 0.1 % cream 1 applic topical TID Qty: 80 0RF Rx Instructions: for up to 2 weeks alendronate 70 mg tablet See Rx Instructions .ROUTE .COMPLEX Qty: 12 0RF Dose Instruction: Take 1 tablet by mouth once a week Rx Instructions: Take 1 tablet by mouth once a week topiramate 50 mg tablet 50 mg PO QHS Qty: 90 0RF Rx Instructions: 1/2 tab x 4 nights then one nightly Follow-up/Referrals: Jesu Kang MD [Physician] - Haja Tao MD [Primary Care Provider] - Time of Disposition: 18:56
== END 2024-11-13 18:47 | disposition home or self-care (01) ==
PROVIDERS: Emergency Provider Nurse Practitioner; PCP Family Medicine Adolescent Medicine
DX: S60.212A Contusion of left wrist, initial encounter (principal); W18.2XXA Fall in (into) shower or empty bathtub, initial encounter; E78.00 Pure hypercholesterolemia, unspecified; E66.9 Obesity, unspecified; Z68.35 Body mass index [BMI] 35.0-35.9, adult
CPT/HCPCS: 73110; 99213; G0463